=== PATIENT | male | born 1970 | race Caucasian/White ===

== ENCOUNTER 2024-09-13 08:14 | Day surgery (SDC) | payer BC, OTHER ==
[~2024-09-13] VITALS: Ht 190.5 cm; Wt 107.5 kg
[~2024-09-13 08:14] MED LIST: EPIPEN0.3 MG/0.3; LOSA50 PO; Lactated Ringer's 0 ML IV ONE; MELO7.5 PO; METO100ER PO; Nexium40 MG PO; Ropivacaine 0.5% HCL/PF 5 MG/ML 30ML Vial ONE; ZESTORETIC 20-1 EAC1 PO
[2024-09-13] MEDS ORDERED: CeFAZolin Sodium 2,000 MG VIAL ONE (08:53)
[2024-09-13] MEDS ORDERED: Lactated Ringer's 1,000 ML IV ONE (09:20)
--- NOTE | 2024-09-13 11:32 | NUR ---
09/13/24 1132 Bañuelos Glenna PATIENT'S BP SIGNIFICANTLY ELEVATED THROUGHOUT PREOP STAY. SEE VITAL SIGN RECORDS. LIGHTS WERE TURNED DOWN IN ROOM AND PT ADVISED TO TRY LAYING QUIETLY WITH EYES CLOSED IN AN ATTEMPT TO TRY TO IMPROVE BP HOWEVER BP CONTINUED TO REMAIN ELEVATED. PER ANNY HOWELL AND DR HARO CASE CANCELLED. 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
== END 2024-09-13 11:09 | disposition home or self-care (01) ==
LOC: ORSCSDS 08:14
DX: K43.9 Ventral hernia without obstruction or gangrene (principal); Z53.9 Procedure and treatment not carried out, unspecified reason
CPT/HCPCS: J0690; J2795; J7120

== ENCOUNTER 2024-09-24 11:46 | Observation (INO) | payer BC, OTHER ==
[~2024-09-24] VITALS: Ht 190.5 cm; Wt 107.0 kg
[~2024-09-24 11:46] MED LIST changes: -EPIPEN0.3 MG/0.3; +EPIPEN0.3 MG/0.3 IM; -Lactated Ringer's 0 ML IV ONE; +METO100 PO; -METO100ER PO; -Ropivacaine 0.5% HCL/PF 5 MG/ML 30ML Vial ONE
[2024-09-24] MEDS ORDERED: HYDCHL25 PO (12:54)
[2024-09-24 12:56] LABS: BASOPHILS ABSOLUTE AUTO 0.04 K/mm3 (0.00-0.23); BASOPHILS PERCENT AUTO 1 % (0-2); EOSINOPHILS PERCENT AUTO 2 % (0-6); Hematocrit 47.1 % (37.0-53.0); Hemoglobin 16.6 g/dL (13.5-17.5); IMMATURE GRAN ABSOLUTE AUTO 0.02 K/mm3 (0.00-0.10); IMMATURE GRAN PERCENT AUTO 0 % (0-1); LYMPHOCYTES PERCENT AUTO 29 % (21-46); MONOCYTES ABSOLUTE AUTO 0.65 K/mm3 (0.16-1.47); MONOCYTES PERCENT AUTO 12 % (4-13); Mean Corpuscular HGB 30.9 pg (26.0-34.0); Mean Corpuscular HGB Conc 35.2 g/dL (31.5-36.5); Mean Corpuscular Volume 88 fL (80-100); Mean Platelet Volume 11.5 fL (9.1-12.4); NEUTROPHILS ABSOLUTE AUTO 3.07 K/mm3 (1.96-9.15); NEUTROPHILS PERCENT AUTO 56 % (41-73); Platelet Count 148 K/mm3 (150-400); RDW Standard Deviation 41.9 fL (35.1-46.3); Red Blood Cell Count 5.37 M/mm3 (4.30-5.90); White Blood Cell Count 5.48 K/mm3 (4.00-11.30)
[2024-09-24 13:14] LABS: Albumin, Blood 4.1 g/dL (3.4-5.0); Albumin/Globulin Ratio 1.3 (0.8-1.8); Bun/Creatinine Ratio 17.4 (12.0-20.0); Calcium, Blood 9.4 mg/dL (8.5-10.1); Creatinine, Blood 1.09 mg/dL (0.60-1.20); Globulin, Blood 3.2 g/dL (2.2-4.0); Potassium, Blood 3.6 mmol/L (3.5-5.5); Total Protein, Blood 7.3 g/dL (6.4-8.2)
[2024-09-24] MEDS ORDERED: HydrALAZINE HCl 20 MG / ML 1ML Vial IV ONE (15:00)
[2024-09-24] MEDS ORDERED: Nitroglycerin 0.4 MG SUBL SL PRN (15:00)
[2024-09-24] MEDS ORDERED: HydrALAZINE HCl 20 MG / ML 1ML Vial IV PRN ×2 (15:00→16:45)
[2024-09-24] MEDS ORDERED: FLU VACC TS2024-25(6MOS UP)/PF 45 MCG/0.5 ML SYRINGE IM SCH (15:00)
[2024-09-24 16:32] VITALS: BP 209/124
[2024-09-24] MEDS ORDERED: TraMADol HCl 50 MG Tab PO PRN (16:40)
[2024-09-24] MEDS ORDERED: Aspirin 325 MG Tab PO ONE (16:45)
[2024-09-24] MEDS ORDERED: FentaNYL Citrate 50 MCG/ML 2 ML Injection IV PRN (16:50)
[2024-09-24] MEDS ORDERED: Nitroglycerin Patch 0.4 MG / HR TOP SCH (17:00)
--- NOTE | 2024-09-24 17:02 | NUR ---
Pt arrived to 357 via wheelchair with spouce in attendence, pt is able to stand and ambulate without assist, a/ox4, pleasant and cooperative with care, follows commands well, reports left side chest pain that radiates down his left arm, and up into his jaw, he reports he recieved ntg at the [facility] and that gave him relief, but pain is coming back, lungs are clear t/o, on r/a, no cough noted, hrr, no edema noted, ppp+2, cap refill <3 sec, vs stable, afebrile, piv to lac site is clear and patent, btx4, abd flat soft nontender, voids without diff, skin c/w/d, devi sandhu, oriented to room layout and call system, call light in reach. encouraged him to call if any changes in condition. b/p is high, notified Dr. Foster, she said to give the hydralazine and ordered ntg patch, this was given.
[2024-09-24 18:08] VITALS: BP 104/67
[2024-09-24 18:15] VITALS: BP 108/68
[2024-09-24] MEDS ORDERED: NS 500 ML IV ONE (18:20)
[2024-09-24] MEDS ORDERED: Ondansetron HCl 2 MG / ML 2ML Vial IV PRN (18:20)
--- NOTE | 2024-09-24 18:26 | NUR ---
Followed up on b/p, he is 104/67, pt reports nausea and feeling light headed, checked on left arm and got 85/48 with map of 62, call to Dr. Foster, recieved orders for a 250ml ns bolus, and zofran prn, ntg patch was removed, repeat b/p is 108/68 with map of 81 pt feels like he wants to eat and see if that will help the nausea, he reports it's better at this time. call light in reach.
[2024-09-24 20:13] VITALS: BP 112/71
[2024-09-24] MEDS ORDERED: Metoprolol Succinate 50 MG TABCR PO SCH (21:00)
[2024-09-25 02:55] VITALS: BP 150/102
--- NOTE | 2024-09-25 04:43 | NUR ---
SHIFT SUMMARY PATIENT SLEPT IN LONG INTERVALS, DID HAVE MILD SAME CP. BP 112/71, I HELD HIS TOPROL. HIS 2ND BP OF 150/102, DID NOT MEET THE PARAMETERS 160, SO I DID NOT GIVE PRN HYDRALIZINE. TELE SR @ 60.
[2024-09-25] MEDS ORDERED: Pantoprazole Sodium 40 MG Tab PO SCH (06:00)
[2024-09-25 06:04] LABS: BASOPHILS ABSOLUTE AUTO 0.05 K/mm3 (0.00-0.23); BASOPHILS PERCENT AUTO 1 % (0-2); EOSINOPHILS PERCENT AUTO 2 % (0-6); Hematocrit 44.8 % (37.0-53.0); Hemoglobin 15.8 g/dL (13.5-17.5); IMMATURE GRAN ABSOLUTE AUTO 0.02 K/mm3 (0.00-0.10); IMMATURE GRAN PERCENT AUTO 0 % (0-1); LYMPHOCYTES ABSOLUTE AUTO 1.69 K/mm3 (0.84-5.20); LYMPHOCYTES PERCENT AUTO 31 % (21-46); MONOCYTES ABSOLUTE AUTO 0.68 K/mm3 (0.16-1.47); MONOCYTES PERCENT AUTO 12 % (4-13); Mean Corpuscular HGB Conc 35.3 g/dL (31.5-36.5); Mean Corpuscular Volume 88 fL (80-100); Mean Platelet Volume 11.4 fL (9.1-12.4); NEUTROPHILS ABSOLUTE AUTO 2.94 K/mm3 (1.96-9.15); NEUTROPHILS PERCENT AUTO 54 % (41-73); Platelet Count 147 K/mm3 (150-400); RDW Coefficient Variation 13.1 % (11.7-14.2); RDW Standard Deviation 42.1 fL (35.1-46.3); White Blood Cell Count 5.48 K/mm3 (4.00-11.30)
[2024-09-25 06:34] LABS: Bun/Creatinine Ratio 15.8 (12.0-20.0); Calcium, Blood 8.8 mg/dL (8.5-10.1); Creatinine, Blood 1.01 mg/dL (0.60-1.20); Potassium, Blood 3.5 mmol/L (3.5-5.5)
[2024-09-25 07:59] VITALS: BP 159/116
[2024-09-25] MEDS ORDERED: Enoxaparin 40 MG/0.4 ML SYR SC SCH (09:00)
[2024-09-25] MEDS ORDERED: HydroCHLOROthiazide 25 mg Tab PO SCH (09:00)
[2024-09-25] MEDS ORDERED: Losartan Potassium 50 MG Tab PO SCH (09:00)
[2024-09-25 11:04] VITALS: BP 149/91
[2024-09-25] MEDS ORDERED: Acetaminophen 325 MG TABLET PO PRN (11:05)
[2024-09-25] MEDS ORDERED: Nitroglycerin Patch 0.2MG / HR TOP ONE (11:05)
[2024-09-25] MEDS ORDERED: Aminophylline 250MG / 10ML 10 ML Vial ONE (13:17)
[2024-09-25] MEDS ORDERED: Regadenoson 0.4 MG/5 ML SYRINGE ONE (13:17)
[2024-09-25 15:09] VITALS: BP 138/99
[2024-09-25] MEDS ORDERED: MONDOXYNE NL100 MG PO (16:31)
--- NOTE | 2024-09-25 18:30 | NUR ---
SHIFT SUMMARY PATIENT ALERT AND INTERACTIVE. PATIENT CONTINUES TO HAVE CHEST PAIN THROUGHOUT THE SHIFT. DR. GORDON AWARE. PATIENT STATES PAIN AT END OF SHIFT IS BARELY NOTED. PATIENT HAD RESTING PORTION OF STRESS TEST TODAY. STRESS TEST TO BE DONE TOMORROW. BP CONTINUES TO BE ELEVATED BUT IMPROVED. PATIENT IS HOPEFUL THAT HE CAN GO HOME TOMORROW.
[2024-09-25 19:31] VITALS: BP 159/106
[2024-09-25] MEDS ORDERED: Metoprolol Tartrate 50 MG Tab PO SCH (21:00)
[2024-09-25] MEDS ORDERED: Doxycycline Hyclate 100 MG TAB PO SCH (21:00)
[2024-09-26 02:00] VITALS: BP 166/115
[2024-09-26 03:48] VITALS: BP 135/101
--- NOTE | 2024-09-26 04:23 | NUR ---
SHIFT SUMMARY. PATIENT IS A&OX4. PATIENT IS INDEPENDENT IN ROOM. PATIENT HAS TELE ON WITH LEADS IN PLACE-NO NOTED EVENTS THIS SHIFT. PATIENT C/O CHEST PAIN THAT IS BASELINE FOR HIM. PATIENTS BLOOD PRESSURE ELEVATED REQUIRING PRN COVERAGE-SEE EMAR AND VITAL SIGNS. PATIENT DOES NOT HAVE A NITRO PATCH ON-THIS WAS REMOVED ON DAYSHIFT FOR TESTING TO BE DONE 09/26/24. PATIENT IS PLEASANT AND COOPERATIVE WITH CARE. BED IS LOCKED IN THE LOWEST POSITION WITH CALL LIGHT IN REACH. CARE IS ONGOING.
[2024-09-26 05:37] LABS: BASOPHILS ABSOLUTE AUTO 0.05 K/mm3 (0.00-0.23); BASOPHILS PERCENT AUTO 1 % (0-2); EOSINOPHILS ABSOLUTE AUTO 0.14 K/mm3 (0.00-0.68); EOSINOPHILS PERCENT AUTO 2 % (0-6); Hematocrit 45.9 % (37.0-53.0); Hemoglobin 16.4 g/dL (13.5-17.5); IMMATURE GRAN ABSOLUTE AUTO 0.02 K/mm3 (0.00-0.10); IMMATURE GRAN PERCENT AUTO 0 % (0-1); LYMPHOCYTES ABSOLUTE AUTO 1.86 K/mm3 (0.84-5.20); LYMPHOCYTES PERCENT AUTO 28 % (21-46); MONOCYTES ABSOLUTE AUTO 0.82 K/mm3 (0.16-1.47); MONOCYTES PERCENT AUTO 12 % (4-13); Mean Corpuscular HGB 31.3 pg (26.0-34.0); Mean Corpuscular HGB Conc 35.7 g/dL (31.5-36.5); Mean Corpuscular Volume 88 fL (80-100); Mean Platelet Volume 11.6 fL (9.1-12.4); NEUTROPHILS ABSOLUTE AUTO 3.84 K/mm3 (1.96-9.15); NEUTROPHILS PERCENT AUTO 57 % (41-73); Platelet Count 158 K/mm3 (150-400); RDW Coefficient Variation 13.2 % (11.7-14.2); RDW Standard Deviation 42.4 fL (35.1-46.3); Red Blood Cell Count 5.24 M/mm3 (4.30-5.90); White Blood Cell Count 6.73 K/mm3 (4.00-11.30)
[2024-09-26 06:05] LABS: Anion Gap 11 mmol/L (3-11); Blood Urea Nitrogen 21 mg/dL (8-24); Bun/Creatinine Ratio 17.9 (12.0-20.0); CHOL/HDL RATIO 2.6; CO2, Blood 25 mmol/L (21-32); Calcium, Blood 9.1 mg/dL (8.5-10.1); Chloride, Blood 110 mmol/L (98-108); Cholesterol 182 mg/dL (50-200); Creatinine, Blood 1.17 mg/dL (0.60-1.20); Glomerular Filtration Rate 75 (60-); Glucose, Blood 128 mg/dL (70-99); HDL Cholesterol 71 mg/dL (>39); LDL/HDL RATIO 1.2; Low Density Lipoprotein Chol 83 mg/dL (0-110); Potassium, Blood 3.7 mmol/L (3.5-5.5); Sodium, Blood 142 mmol/L (136-145); Triglycerides 142 mg/dL (30-160); Very Low Density Lipoprot Chol 28 mg/dL (6-32)
[2024-09-26 07:21] VITALS: BP 162/104
[2024-09-26] MEDS ORDERED: Nitroglycerin Patch 0.2MG / HR TOP SCH (09:00)
[2024-09-26] MEDS ORDERED: Caffeine Citrated 60 MG/3 ML Vial ONE (13:38)
[2024-09-26] MEDS ORDERED: Regadenoson 0.4 MG/5 ML SYRINGE ONE ×2 (13:39→13:59)
[2024-09-26 16:40] VITALS: BP 157/110
[2024-09-26] MEDS ORDERED: Spironolactone 25 MG Tab PO SCH (18:00)
--- NOTE | 2024-09-26 18:33 | NUR ---
SHIFT SUMMARY PATIENT ALERT AND INTERACTIVE. PATIENT INDEPENDENT IN THE ROOM. AT BEDSIDE MOST OF THE DAY. STRESS PORTION OF STRESS TEST DONE TODAY. BP CONTINUES TO BE ELEVATED. CARDIOLOGY CONSULT DONE. CONTINUE TO ADJUST MEDICATIONS. PATIENT STATES CHEST PAIN CONTINUES TO BE "BASICALLY GONE" PER PATIENT. PATIENT IS HOPEFUL TO DISCHARGE TOMORROW. EDUCATION PROVIDED RELATED TO DIET, BLOOD PRESSURE PARAMETERS, FLUID INTAKE AND OUTPUT.
[2024-09-26 20:18] VITALS: BP 163/127
[2024-09-26] MEDS ORDERED: AmLODIPine Besylate 5 MG Tab PO SCH (21:00)
[2024-09-27 05:09] VITALS: BP 158/90
--- NOTE | 2024-09-27 05:33 | NUR ---
SHIFT SUMMARY. PATIENT IS A&OX4 AND INDEPENDENT c STEADY GAIT. PATIENTS MORNING B/P 158/90, PATIENT REPORTS ALMOST NO CHEST PAIN THIS MORNING. PATIENT HAS TELE ON c LEADS IN PLACE c NO EVENTS THIS SHIFT. PATIENT HAS RESTED T/O NIGHT. BED IS LOCKED IN THE LOWEST POSITION c CALL LIGHT IN REACH. CARE IS ONGOING.
[2024-09-27 07:18] VITALS: BP 164/122
[2024-09-27 10:28] VITALS: BP 137/92
[2024-09-27 15:38] VITALS: BP 155/97
--- NOTE | 2024-09-27 18:49 | NUR ---
SHIFT SUMMARY: PT A/O X4. PLEASANT AND COOPERATIVE WITH CARE. PT CONTINUED TO BE HYPERTENSIVE WITH AM VITALS. IV HYDRALAZINE AND SCHEDULED PO MEDICATIONS PROVIDED. BLOOD PRESSURE STABLE WITH REPEAT VITALS. RENAL ARTERIAL DUPLEX ORDERED AND COMPLETED. CALL LIGHT IN REACH. BED IN LOWEST POSITION.
[2024-09-27 19:24] VITALS: BP 148/103
[2024-09-28] VITALS (8 sets, daily range): BP systolic 110–146; BP diastolic 78–111
--- NOTE | 2024-09-28 04:47 | NUR ---
SHIFT SUMMARY 59 YR M ADMITTED ON 09/27/24. FULL CODE. NO ACUTE CHANGES THIS SHIFT. BP REMAINS ELEVATED BUT NOT WITHIN PARAMETERS TO ADMINISTER HYRALAZINE. PT HAD NO C/O PAIN OR DISCOMFORT THIS SHIFT. HE APPEARS TO HAVE SLEPT COMFORTABLY THROUGHOUT THE NIGHT. NO ADVERSE EVENTS REPORTED BY ORGAN PIPE FINISHER. PT IS PLEASANT AND COOPERATIVE WITH CARE. BED IN LOW POSITION AND CALL LIGHT IN REACH.
[2024-09-28] MEDS ORDERED: NS 250 ML IV ONE (15:46)
[2024-09-28] MEDS ORDERED: NS 1,000 ML IV ONE ×2 (15:46→15:58)
[2024-09-28] MEDS ORDERED: Heparin Sodium 1000 Units/ML 10ML MDV ONE ×2 (15:47→15:58)
[2024-09-28] MEDS ORDERED: Midazolam HCl 1MG / ML 2ML Vial ONE (16:19)
[2024-09-28] MEDS ORDERED: FentaNYL Citrate 50 MCG/ML 2 ML Injection ONE (16:20)
--- NOTE | 2024-09-28 18:26 | NUR ---
ASSUMPTION OF CARE/ SHIFT SUMMARY PT FROM MEDICAL FLOOR ROOM 357, RECEIVED REPORT FROM MEDICAL FLOOR RN. PT CURRENTLY IN PROCEDURE DUE TO COME TO ROOM PCU 12 POST ANGIOGRAM OF RENAL ARTERIES. PT TO ROOM FROM [facility] @ APPROX 1710. BEDSIDE REPORT GIVEN BY CLINICAL TECHNOLOGIST RN. A&O X4, ABLE TO MAKE NEEDS KNOWN, OBEYS COMMANDS, PT EDUCATED TO LAY FLAT FOR 1 HOUR THEN WE WILL RAISE THE BED 15 DEGREES. BASLINE PT IS IND. LUNGS WNL SPO2 GREATER THAN 90%. HR 50 S, BP WNL WITH MAP GREATER THAN 65, PT DENIES CHEST P/P AT THIS TIME. PT DENIES NAUSEA AT THIS TIME, DENIES FEELINGS OF CONSTIPATION STATING LAST BM WAS THIS MORNING 09/28. IN REPORT GIVEN BY MEDICAL RN PT CONTINENT OF URINE, HAS NOT VOIDED FOR THIS RN POST PROCEDURE. FEMORAL SITE C/D/I/ SOFT TO PALPATION, NO SIGNS OF OOZING, PT EDUCATED TO REPORT ANY WARM SENSATIONS TO GROIN AREA OR FEELINGS OF LEAKING FLUID TO THE GROIN AREA. PT HOB RAISED TO 15 DEGREES @ 1800
[2024-09-29] VITALS: BP 132/96
[2024-09-29 04:00] VITALS: BP 110/78
[2024-09-29 07:41] VITALS: BP 121/99
[2024-09-29 11:17] VITALS: BP 127/93
[2024-09-29] MEDS ORDERED: SPIR25 PO (11:29)
[2024-09-29] MEDS ORDERED: AMLO5 PO (11:29)
[2024-09-29] MEDS ORDERED: Acetaminophen650 M1 PO (11:29)
== END 2024-09-29 13:00 | disposition home or self-care (01) ==
LOC: ER 11:46 → MEDS 11:47 → ER 14:54 → MEDS 14:54 → PCU 09-28 17:05
PROVIDERS: Student in an Organized Health Care Education/Training Program; ADMIT Family Medicine
DX: I16.0 Hypertensive urgency (principal); R73.9 Hyperglycemia, unspecified; I70.1 Atherosclerosis of renal artery; L71.9 Rosacea, unspecified; I10 Essential (primary) hypertension; K21.9 Gastro-esophageal reflux disease without esophagitis; D69.6 Thrombocytopenia, unspecified; E66.9 Obesity, unspecified; Z68.28 Body mass index [BMI] 28.0-28.9, adult; Z79.899 Other long term (current) drug therapy
CPT/HCPCS: 36252; 36415; 36416; 71046; 76937; 78452; 80048; 80053; 80061; 83036; 83690; 84443; 84484; 85025; 93005; 93010; 93017; 93306; 93975; 96372; 96374; 96376; 99152; 99285-25; A9270; A9500; C1760; C1769; C1887; C1894; G0378; J0280; J0360; J0706; J1644; J1650; J2250; J2785; J3010; J7030; J7040; J7050; Q9967

== ENCOUNTER 2025-05-09 06:25 | Day surgery (SDC) | payer BC, OTHER ==
[2025-05-09] VITALS (27 sets, daily range): BP systolic 88–130; BP diastolic 64–102
[~2025-05-09] VITALS: Ht 190.5 cm; Wt 103.1 kg
[~2025-05-09 06:25] MED LIST changes: +AMLO5 PO; +Acetaminophen650 M1 PO; +HYDCHL25 PO; +LISI20 PO; +MONDOXYNE NL100 MG PO; +SPIR25 PO
[2025-05-09] MEDS ORDERED: Benzocaine Oral Spray 0.5ML UD ONE (07:12)
--- NOTE | 2025-05-09 07:35 | NUR ---
05/09/25 0735 Mary Jo Ernst CONFIRMED AND REVIEWED H&P, MEDCICATIONS, ALLERGIES, MEDICAL HISTORY, RESPIRATORY HISTORY, VITAL SIGNS, 3-LEAD EKG, CONSENTS, AND PHYSICIAN ORDERS. PATIENT CONFIRMS NPO STATUS AND AGREES WITH SCHEDULED PROCEDURE. MONITOR INTACT WITH CONTINUOUS PULSE OXIMETRY, CAPNOGRAPHY, 3-LEAD EKG, INTERMITTENT BP. SUPPLEMENTAL O2 TO BE TITRATED THROUGHOUT PROCEDURE TO MAINTAIN O2 SATURATION ABOVE 90%. PATIENT DETERMINED TO BE ASA APPROPRIATE FOR PROPOFOL SEDATION PRIOR TO START OF PROCEDURE BY .MALLAMPATI CLASS 3 AIRWAY: VISUALIZATION OF ONLY THE BASE OF THE UVULA.
[2025-05-09] MEDS ORDERED: Midazolam HCl 1MG / ML 2ML Vial ONE (07:40)
--- NOTE | 2025-05-09 08:29 | NUR ---
REPORT RECEIVED FROM EDDIE POOL. VSS. PT ON RA. PT A&OX4. PT ABLE TO REPOSITION SELF IN BED. PT REQUESTING PO FLUIDS AND TOLERATING THEM WELL. PT DENIES PAIN, NAUSEA OR OTHER DISCOMFORTS.
== END 2025-05-09 08:50 | disposition home or self-care (01) ==
LOC: ORSCMMR 06:25 → ORD 07:30 → ORSCMMR 08:50
DX: K21.9 Gastro-esophageal reflux disease without esophagitis (principal); K31.9 Disease of stomach and duodenum, unspecified; Z12.11 Encounter for screening for malignant neoplasm of colon; Z86.0100 Personal history of colon polyps, unspecified; D12.2 Benign neoplasm of ascending colon; D12.0 Benign neoplasm of cecum; K63.5 Polyp of colon; Z80.0 Family history of malignant neoplasm of digestive organs; G47.33 Obstructive sleep apnea (adult) (pediatric); I10 Essential (primary) hypertension; Z79.899 Other long term (current) drug therapy
CPT/HCPCS: 88305; 88342; A9270; J2250; J2704; J7120